=== PATIENT | female | born 1995 | race Hispanic/Latino ===

== ENCOUNTER 2020-03-25 20:31 | Emergency (ER) | payer SELFPAY ==
[~2020-03-25] VITALS: Ht 157.5 cm; Wt 49.9 kg
[2020-03-25 22:54] LABS: BILIRUBIN,URINE NEGATIVE (NEGATIVE); CLARITY,URINE CLOUDY (CLEAR); COLOR,URINE RED (YELLOW); KETONES,URINE 1+ (NEGATIVE); LEUKOCYTE ESTERASE ,URINE TRACE (NEGATIVE); NITRITE,URINE NEGATIVE (NEGATIVE); PROTEIN,URINE DIPSTICK 1+ (NEGATIVE); URINE UROBILINOGEN 0.2 mg/dL (0.2 - 1)
[2020-03-25 22:55] LABS: PREGNANCY TEST, URINE NEGATIVE (NEGATIVE)
[2020-03-25 22:58] LABS: BACTERIA,URINE FEW /HPF; EPITHELIAL CELLS,URINE FEW /LPF; RBC,URINE >50 /HPF (0-5); WBC,URINE (MAN) 21-50 /HPF (0-5)
--- NOTE | 2020-03-25 23:32 | Emergency Department Note ---
History of Present Illnes History of Present Illness Chief Complaint: General Medicine Complaints History of Present Illness This is a 24 year old female A&OX3 PRESENTS TO THE ER C/O LLQ ABD CRAMPING AND VAGINAL BLEEDING ONSET TODAY AROUND 1000; PT ALSO REPORTS FEELING LIGHTHEADED AND HEADACHE, " I DON'T KNOW IF IT IS JUST STRESS"; PT STATES SHE TOOK X5 TESTS LAST WEEK RESULTING POSITIVE; REPORTS CHANGING SANITARY PAD X5 TODAY; REPORTS SCHEDULED APPT 05/01/20; ; DENIES DYSURIA OR BURNING WITH URINATION; V/S/S; [facility] LAST MONTH;. Historian: Patient Arrival Mode: Car Onset (how long ago): hour(s) (12) Location: LOWER ABD Quality: CRAMPING, VAGINAL BLEEDING Radiation: Reports non-radiation Severity: mild Onset quality: sudden Duration (how long): hour(s) (10) Timing of current episode: intermittent Progression: waxing and waning Chronicity: new Context: Denies recent illness, Denies recent surgery Relieving factors: none Exacerbating factors: none Associated symptoms: Reports denies other symptoms Treatments prior to arrival: none Past Medical/Family History Physician Review I have reviewed the patient's past medical and family history. Any updates have been documented here. Past Medical History Recent Fever: No Clinical Suspicion of Infectio: No New/Unexplained Change in Ment: No Past Medical History: Anxiety Past Surgical History: None Social History Smoking Cessation: Never Smoker Alcohol Use: None Any Illegal Drug Use: No TB Exposure/Symptoms: No Physically hurt or threatened: No Other Last Tetanus: UNK Any Pre-Existing Lines (PICC,: No Is patient up to date on immun: Yes Last Flu: UNK Last Pneumovax: UNK Review of Systems Review of Systems Constitutional: Reports no symptoms EENTM: Reports no symptoms Cardiovascular: Reports no symptoms Respiratory: Reports no symptoms Gastrointestinal: Reports no symptoms Genitourinary: Reports as per HPI Musculoskeletal: Reports no symptoms Integumentary: Reports no symptoms Neurological: Reports no symptoms Psychological: Reports no symptoms Endocrine: Reports no symptoms Hematological/Lymphatic: Reports no symptoms Physical Exam Related Data Allergies: Coded Allergies: Penicillins (Verified Allergy, Intermediate, HIVES, 03/25/20) Triage Vital Signs Vital Signs Date Time Temp Pulse Resp B/P (MAP) Pulse Ox O2 Delivery O2 Flow Rate FiO2 03/25/20 21:57 96.9 62 18 123/81 100 Vital signs reviewed: Yes Physical Exam CONSTITUTIONAL Constitutional: Present well-developed, Present well-nourished HENT HENT: Present normocephalic, Present atraumatic, Present oropharynx clear/moist, Present nose normal HENT L/R: Present left ext ear normal, Present right ext ear normal EYES Eyes: Reports PERRL, Reports conjunctivae normal NECK Neck: Present ROM normal PULMONARY Pulmonary: Present effort normal, Present breath sounds normal CARDIOVASCULAR Cardiovascular: Present regular rhythm, Present heart sounds normal, Present capillary refill normal, Present normal rate GASTROINTESTINAL Abdominal: Present soft, Present nontender, Present bowel sounds normal GENITOURINARY Genitourinary: Present exam deferred SKIN Skin: Present warm, Present dry MUSCULOSKELETAL Musculoskeletal: Present ROM normal NEUROLOGICAL Neurological: Present alert, Present oriented x 3, Present no gross motor or sensory deficits PSYCHOLOGICAL Psychological: Present mood/affect normal, Present judgement normal Results Laboratory Laboratory Laboratory Tests Test 03/25/20 22:08 03/25/20 22:00 Human Chorionic Gonadotropin, Quant 2.32 mIU/mL (0-10) Urine Color Red (YELLOW) Urine Clarity Cloudy (CLEAR) Urine pH 7 (5 - 7) Urine Specific [place] 1.025 (1.010-1.025) Urine Protein 1+ (NEGATIVE) Urine Glucose (UA) Negative (NEGATIVE) Urine Ketones 1+ (NEGATIVE) Urine Blood 4+ (NEGATIVE) Urine Nitrite Negative (NEGATIVE) Urine Bilirubin Negative (NEGATIVE) Urine Urobilinogen 0.2 mg/dL (0.2 - 1) Urine Leukocyte Esterase Trace (NEGATIVE) Urine RBC >50 /HPF (0-5) Urine WBC 21-50 /HPF (0-5) Urine Epithelial Cells Few /LPF (NONE) Urine Bacteria Few /HPF (NONE) Urine Test Negative (NEGATIVE) Lab results reviewed: Yes Assessment & Plan Medical Decision Making MDM Patient presents with complaint of vaginal bleeding and cramping that started at 10:00 AM today patient states had a positive test a week ago. Patient presents this is where she is having a miscarriage. UA, quantitative hCG ordered to eval hormone level and for UTI. Patient's quantitative hCG only 2.3 therefore most likely patient is miscarrying. Patient also found to have UTI. Discharge with [facility] for UTI. Instructed to follow up with OB to have quantitative hCG checked in a couple days as it probably will be lower and she has a process of miscarrying. Assessment & Plan Final Impression: (1) Spontaneous (2) UTI (urinary tract infection) Last Vital Signs Date Time Temp Pulse Resp B/P (MAP) Pulse Ox O2 Delivery O2 Flow Rate FiO2 03/25/20 21:57 96.9 62 18 123/81 100 ESTELLA ARRIAGA MD Mar 25, 2020 23:32
== END 2020-03-26 00:01 | disposition home or self-care (01) ==
LOC: ER 20:31
DX: O03.9 Complete or unspecified spontaneous abortion without complication (principal); R10.32 Left lower quadrant pain; N39.0 Urinary tract infection, site not specified
CPT/HCPCS: 36415; 81001; 81025; 84702; 99283

== ENCOUNTER 2024-05-26 19:35 | Emergency (ER) | END 2024-05-26 21:07 | disposition left against medical advice (07) | LOC: FSED 21:04 | DX: N93.8 Other specified abnormal uterine and vaginal bleeding (principal) ==

== ENCOUNTER 2024-05-27 14:26 | Emergency (ER) | payer SELFPAY ==
[~2024-05-27] VITALS: Ht 157.5 cm; Wt 55.4 kg
[2024-05-27 18:42] VITALS: PULSE 90; RESP 14; TEMP 99.6; O2SAT 100
== END 2024-05-27 18:50 | disposition home or self-care (01) ==
LOC: FSED 14:29
DX: O20.0 Threatened abortion (principal); R10.30 Lower abdominal pain, unspecified; M54.50 Low back pain, unspecified
CPT/HCPCS: 36415; 76801; 76817; 80053; 81003; 81025; 84702; 85025; 86900; 99283